=== PATIENT | male | born 1990 | race African-American/Black ===

== ENCOUNTER 2018-04-04 10:02 | Emergency (ER) | payer SELFPAY ==
[~2018-04-04] VITALS: Ht 180.3 cm; Wt 90.0 kg
[2018-04-04 10:04] VITALS: BP 130/65; PULSE 82; RESP 18; TEMP 98.4; O2SAT 100
--- NOTE | 2018-04-04 10:11 | PD ---
HPI Chief Complaint: ENT Complaint Time Seen by Provider: 10:07 Travel History International Travel<30 days: No Contact w/Intl Traveler<30days: No Traveled to known affect area: No History of Present Illness HPI 28-year-old male presents to emergency department for evaluation of sore throat 3 days. Patient states it is getting difficult to swallow. Pain is worse on the right than left. Pain is moderate in severity, constant, worse with swallowing. He denies any fever or chills. Denies any cough or chest congestion. He has no other symptoms to report. [facility] Social History Tobacco Use: No Allergies-Medications (Allergen,Severity, Reaction): Coded Allergies: No Known Allergies (Verified Allergy, Unknown, 04/04/18) Reported Meds & Prescriptions Reported Meds & Active Scripts Active Prednisone 50 Mg Tab 50 Mg PO DAILY Augmentin (Amoxicillin-Clavulanate) 875-125 Mg Tab 1 Tab PO BID 10 Days Review of Systems Except as stated in HPI: all other systems reviewed are Neg Physical Exam Narrative GENERAL: Well-nourished, well-developed male patient in no acute distress SKIN: Focused skin assessment warm/dry. HEAD: Normocephalic. EYES: No scleral icterus. No injection or drainage. ENT: Mucosa pink and moist. 2+ tonsillar edema with significant erythema. The right tonsil appears to be larger than the left.. No uvular edema. No uvular, palatal, or tonsillar deviation. Airway patent. Nasal turbinates appear normal without nasal blood, purulent drainage or septal hematoma. NECK: Supple, trachea midline anterior cervical lymphadenopathy. CARDIOVASCULAR: Regular rate and rhythm without murmurs, gallops, or rubs. RESPIRATORY: Breath sounds equal bilaterally. No accessory muscle use. GASTROINTESTINAL: Abdomen soft, non-tender, nondistended. MUSCULOSKELETAL: No cyanosis, or edema. BACK: Nontender without obvious deformity. No CVA tenderness. Data Data Last Documented VS Vital Signs Date Time Temp Pulse Resp B/P (MAP) Pulse Ox O2 Delivery O2 Flow Rate FiO2 04/04/18 10:04 98.4 82 18 130/65 (86) 100 Orders Orders Dexamethasone Inj (Decadron Inj) (04/04/18 10:15) Group A Rapid Strep Screen (04/04/18 10:14) Strep Culture (Group A) (04/04/18 10:50) Ed Discharge Order (04/04/18 11:15) [facility] Medical Decision Making Medical Screen Exam Complete: Yes Emergency Medical Condition: Yes Medical Record Reviewed: Yes Differential Diagnosis Tonsillitis versus pharyngitis versus peritonsillar abscess versus cellulitis Narrative Course 28-year-old male presents emergency department for evaluation of sore throat. Patient appears well. His vital signs are stable. Patient is given IM Decadron here. He will be discharged home on oral antibiotic and short course of oral steroids. I have encouraged follow-up with a primary care provider and return immediately with any acute worsening of symptoms. Diagnosis Primary Impression: Peritonsillar abscess Referrals: Primary Care Physician Patient Instructions: General Instructions, Peritonsillar Abscess (ED) Departure Forms: Tests/Procedures, Work Release Enter return to work date: Apr 07, 2018 Additional Instructions: Warm salt water gargles Follow-up the primary care provider Tylenol or ibuprofen as started on the package as needed for pain and/or fever Return immediately with any acute worsening symptoms Med/Other Pt SpecificInfo: Prescription(s) given Scripts Prednisone (Prednisone) 50 Mg Tab 50 MG PO DAILY, #5 TAB 0 Refills Prov: Jes Mays 04/04/18 Amoxicillin-Clavulanate (Augmentin) 875-125 Mg Tab 1 TAB PO BID for Infection for 10 Days, #20 TAB 0 Refills Prov: Jes Mays 04/04/18 Disposition: 01 DISCHARGE HOME Condition: Stable Jes Mays Apr 04, 2018 10:11
[2018-04-04] MEDS ORDERED: DEXAMETHASONE SOD PHOS 4 MG/ML VIAL IM ONE (10:15)
[2018-04-04] MEDS ORDERED: AUGM875T3 PO (11:17)
[2018-04-04] MEDS ORDERED: PRED50 PO (11:17)
== END 2018-04-04 11:54 | disposition home or self-care (01) ==
LOC: NEPD 10:02
DX: J36 Peritonsillar abscess (principal)
CPT/HCPCS: 87081; 87880; 96372; 99283; J1100